=== PATIENT | male | born 1945 | race Caucasian/White ===

== ENCOUNTER 2020-08-04 10:44 | Emergency (ER) | payer MEDICARE, OTHER ==
[~2020-08-04 10:44] MED LIST: PERCOCET 5/325 T1 EA PO
[2020-08-04] MEDS ORDERED: HYDROCODON-ACE1 EAC4 PO (17:15)
== END 2020-08-04 17:43 | disposition home or self-care (01) ==
LOC: ER1 10:44
DX: S22.41XA Multiple fractures of ribs, right side, initial encounter for closed fracture (principal); I10 Essential (primary) hypertension; F17.210 Nicotine dependence, cigarettes, uncomplicated; W00.0XXA Fall on same level due to ice and snow, initial encounter
CPT/HCPCS: 71111; 71250; 96372; 99284; J2270; J2405

== ENCOUNTER 2020-08-08 00:51 | Observation (INO) | payer MEDICARE, OTHER ==
[~2020-08-08] VITALS: Ht 177.8 cm; Wt 77.1 kg
[~2020-08-08 00:51] MED LIST changes: +HYDROCODON-ACE1 EAC4 PO
[2020-08-08] MEDS ORDERED: ZOFRAN ODT 4 MG4 MG SL (03:52)
[2020-08-08] MEDS ORDERED: LEVOTHYROXINE100 MCG PO (18:46)
[2020-08-08] MEDS ORDERED: PRAVASTATIN SOD40 MG PO (18:47)
[2020-08-08] MEDS ORDERED: PRINIVIL20 MG PO (18:47)
[2020-08-08] MEDS ORDERED: GLUCOSAMINE HC500 MG PO (18:49)
[2020-08-08] MEDS ORDERED: CO Q10200 MG PO (18:50)
[2020-08-08] MEDS ORDERED: VITAMIN B-121000 MC1 PO (18:51)
[2020-08-08] MEDS ORDERED: VITAMIN D3125 MCG PO (18:52)
[2020-08-10] MEDS ORDERED: CYCLOBENZAPRINE10 MG PO (12:07)
== END 2020-08-10 12:43 | disposition home or self-care (01) ==
LOC: ER1 00:51 → CDU 10:41 → M/S 10:41 → CDU 10:41 → M/S 19:05
PROVIDERS: ADMIT Surgery
DX: S27.0XXA Traumatic pneumothorax, initial encounter (principal); S22.41XA Multiple fractures of ribs, right side, initial encounter for closed fracture; J90 Pleural effusion, not elsewhere classified; E87.1 Hypo-osmolality and hyponatremia; E03.9 Hypothyroidism, unspecified; I10 Essential (primary) hypertension; E78.00 Pure hypercholesterolemia, unspecified; F17.210 Nicotine dependence, cigarettes, uncomplicated; Z20.822 Contact with and (suspected) exposure to COVID-19; Z79.899 Other long term (current) drug therapy; W00.0XXA Fall on same level due to ice and snow, initial encounter
CPT/HCPCS: 36415; 71046; 80053; 82550; 82553; 83874; 84484; 85025; 93005; 96372; 96374; 99284; G0378; J1885; J2270; U0002

== ENCOUNTER 2020-08-08 09:10 | Emergency (ER) | payer MEDICARE, OTHER ==
[~2020-08-08 09:10] MED LIST changes: +ZOFRAN ODT 4 MG4 MG SL
[2020-08-08 10:49] LABS: HEMOGLOBIN 13.8 gm/dl (14.0-17.5); RED BLOOD COUNT 4.14 M/UL (4.20-5.50); WHITE BLOOD COUNT 11.7 K/UL (4.5-11.0)
[2020-08-08 11:10] LABS: BUN/CREATININE RATIO 16 (0-10)
[2020-08-08] MEDS ORDERED: LEVOTHYROXINE100 MCG PO (18:46)
[2020-08-08] MEDS ORDERED: PRINIVIL20 MG PO (18:47)
[2020-08-08] MEDS ORDERED: PRAVASTATIN SOD40 MG PO (18:47)
[2020-08-08] MEDS ORDERED: GLUCOSAMINE HC500 MG PO (18:49)
[2020-08-08] MEDS ORDERED: CO Q10200 MG PO (18:50)
[2020-08-08] MEDS ORDERED: VITAMIN B-121000 MC1 PO (18:51)
[2020-08-08] MEDS ORDERED: VITAMIN D3125 MCG PO (18:52)
== END 2020-08-08 19:30 | disposition admitted as inpatient to this hospital (09) ==
LOC: ER1 09:10
PROVIDERS: Nurse Practitioner
DX: S27.0XXA Traumatic pneumothorax, initial encounter (principal); S22.31XA Fracture of one rib, right side, initial encounter for closed fracture; E87.1 Hypo-osmolality and hyponatremia; J90 Pleural effusion, not elsewhere classified; I10 Essential (primary) hypertension; F17.200 Nicotine dependence, unspecified, uncomplicated; W19.XXXA Unspecified fall, initial encounter
CPT/HCPCS: 80053; 82550; 82553; 83874; 84484; 85025; U0002

== ENCOUNTER → 2021-12-10 | Outpatient (CLI) | payer MEDICARE ==
[~2021-12-10] MED LIST changes: +CO Q10200 MG PO; +CYCLOBENZAPRINE10 MG PO; +GLUCOSAMINE HC500 MG PO; +LEVOTHYROXINE100 MCG PO; +PRAVASTATIN SOD40 MG PO; +PRINIVIL20 MG PO; +VITAMIN B-121000 MC1 PO; +VITAMIN D3125 MCG PO
== END ==
LOC: KOH-I 13:30
DX: F17.210 Nicotine dependence, cigarettes, uncomplicated (principal); J94.8 Other specified pleural conditions
CPT/HCPCS: 71271

== ENCOUNTER → 2022-03-10 | Outpatient (CLI) | payer MEDICARE | LOC: KOH-I 08:58 | DX: R91.8 Other nonspecific abnormal finding of lung field (principal) | CPT/HCPCS: 71250 ==